=== PATIENT | male | born 1955 | race Two or more races ===

== ENCOUNTER 2017-07-22 17:26 | Emergency (ER) | payer BC, OTHER ==
[~2017-07-22] VITALS: Ht 185.4 cm; Wt 117.9 kg
[2017-07-22 18:35] LABS: Basophils # (auto) 0 uL; Basophils % (auto) 0.4 % (0.0-2.0); Eosinophils # (auto) 0 uL; Eosinophils % (auto) 0.1 % (0.0-7.0); Hemoglobin 14.7 g/dL (13.5-17.5); Lymphocytes # (auto) 0.8 uL; Lymphocytes % (auto) 8.8 % (10.0-50.0); Mean Corpuscular Hemoglobin 29.5 pg (28.0-32.0); Mean Corpuscular Hgb Conc. 34.2 g/dL (32.0-36.0); Mean Corpuscular Volume 86.4 fL (80.0-100.0); Monocytes # (auto) 0.4 uL; Monocytes % (auto) 4.5 % (0.0-12.0); Neutrophils # (auto) 7.4 uL; Neutrophils % (auto) 86.2 % (37.0-80.0); Platelet Count (auto) 284 10^3/uL (140-450); Red Blood Cells 4.98 10^6/uL (4.5-5.90); Red Cell Distribution Width 13.4 % (11.8-14.3); White Blood Cell 8.6 10^3/uL (4.4-10.8)
[2017-07-22 18:51] LABS: Albumin 4.1 g/dL (3.4-5.0); BUN/Creatinine Ratio 18.1; Calcium 8.8 mg/dL (8.5-10.1); Magnesium 1.9 mg/dL (1.6-2.6); Potassium 3.2 mmol/L (3.5-5.1)
[2017-07-22 18:54] LABS: Bilirubin, Total 0.4 mg/dL (0.2-1.0); Total Protein 8.2 g/dL (6.4-8.2)
[2017-07-23] MEDS ORDERED: POTASSIUM CHL 20 Meq TABLET PO ONE (04:15)
[2017-07-23] MEDS ORDERED: SODIUM CHLORIDE 0.9% 1,000 ML IV ONE ×2 (04:30→07:13)
[2017-07-23] MEDS ORDERED: KETOROLAC TROMETH 30 MG/ML 1ML VIAL IV ONE (07:15)
[2017-07-23] MEDS ORDERED: METOCLOPRAMIDE HCL 5MG/ml INJ 2ml VIAL IV ONE (07:15)
[2017-07-23 08:30] VITALS: BP 137/75
== END 2017-07-23 09:59 | disposition home or self-care (01) ==
LOC: ER 17:29
DX: R07.89 Other chest pain (principal); E87.6 Hypokalemia; I10 Essential (primary) hypertension; E78.5 Hyperlipidemia, unspecified
CPT/HCPCS: 36415; 71046; 80053; 82962; 83735; 84443; 84484; 85025; 93005; 96361; 96374; 96375; 99285; J1885; J2765; J7030